=== PATIENT | female | born 1955 | race Caucasian/White ===

== ENCOUNTER 2016-03-17 10:34 | Emergency (ER) | payer OTHER ==
[2016-03-17 10:42] VITALS: RESP 18; TEMP 97.7
--- NOTE | 2016-03-17 11:18 | ED ---
Extremity Problem HPI - General Chief complaint: Extremity Problem,Nontraumatic Stated complaint: shoulder pain Time Seen by Provider: 03/17/16 11:04 Source: patient, RN notes reviewed Mode of arrival: ambulatory Limitations: no limitations - History of Present Illness Initial comments: This patient is a 60-year-old woman who presents to be evaluate for right shoulder and right elbow pains. The patient states that she started having these pains about 3 days ago and initially thought that they were related to change in some of her work duties which included some cleaning and other movements that were new for her. She states that about 3 days ago she began having some aching pains in the right shoulder and also the right elbow. The pains are constant, mild to moderate intensity, worse with palpation or certain movements. The patient states that over the past day or so she has been having some anxiety that this may be related to her heart. She is denying any anginal type associated symptoms, including no diaphoresis, dyspnea, nausea or vomiting , palpitations, lightheadedness or syncope. Patient states she has not previous stress test. She does not smoke. There is not much family history of heart disease, she is only aware of her mother and sister having had atrial fibrillation, no [place]. MD Complaint: extremity pain Onset/Timin -: days(s) Location: right, upper extremity History of Same: No Radiation: distal Quality: aching Consistency: constant Improves with: nothing Worsens with: palpation Associated Symptoms: denies other symptoms - Related Data Home Medications Medication Instructions Recorded Confirmed ALPRAZolam [Xanax] 0.5 mg PO DAILY PRN 03/17/16 03/17/16 Aspirin [Adult Low Dose Aspirin EC] 81 mg PO HS 03/17/16 03/17/16 Lisinopril-Hctz 10-12.5 mg 1 tab PO DAILY 03/17/16 03/17/16 [Zestoretic 10-12.5] Sertraline HCl [Zoloft] 100 mg PO DAILY 03/17/16 03/17/16 Simvastatin [Zocor] 40 mg PO HS 03/17/16 03/17/16 metFORMIN HCL [Glucophage] 500 mg PO BID 03/17/16 03/17/16 Previous Rx's Medication Instructions Recorded traMADol HCl [Ultram] 50 mg PO Q6H PRN #20 tab 03/17/16 Allergies Allergy/AdvReac Type Severity Reaction Status Date / Time Sulfa (Sulfonamide Allergy Rash/Hives Verified 03/17/16 12:52 Antibiotics) Review of Systems ROS Statement: Those systems with pertinent positive or pertinent negative responses have been documented in the HPI. ROS Other: All systems not noted in ROS Statement are negative. Constitutional: Denies: fever, chills, weakness Respiratory: Denies: cough, dyspnea Cardiovascular: Denies: chest pain, palpitations, edema, syncope Gastrointestinal: Denies: abdominal pain, nausea, vomiting Genitourinary: Denies: dysuria, hematuria Musculoskeletal: Reports: as per HPI, arthralgia. Denies: back pain Skin: Denies: rash Neurological: Denies: headache, weakness, numbness, paresthesias Past Medical History Past Medical History: Diabetes Mellitus, Hyperlipidemia, Hypertension Additional Past Medical History / Comment(s): anxiety History of Any Multi-Drug Resistant Organisms: None Reported Past Surgical History: No Surgical Hx Reported Past Psychological History: No Psychological Hx Reported Smoking Status: Never smoker Past Alcohol Use History: Occasional Past Drug Use History: None Reported General Exam Limitations: no limitations General appearance: alert, in no apparent distress Head exam: Present: atraumatic, normocephalic Eye exam: Present: normal appearance. Absent: scleral icterus, conjunctival injection ENT exam: Present: normal oropharynx Neck exam: Present: normal inspection Respiratory exam: Present: normal lung sounds bilaterally. Absent: respiratory distress, wheezes, rales, rhonchi, stridor Cardiovascular Exam: Present: regular rate, normal rhythm, normal heart sounds. Absent: systolic murmur, diastolic murmur, rubs, gallop GI/Abdominal exam: Present: soft. Absent: distended, tenderness, guarding, rebound, mass Extremities exam: Present: normal inspection, full ROM, tenderness, normal capillary refill. Absent: pedal edema, calf tenderness Back exam: Present: normal inspection. Absent: CVA tenderness (R), CVA tenderness (L) Neurological exam: Present: alert. Absent: motor sensory deficit Skin exam: Present: warm, dry, intact, normal color. Absent: rash Course Vital Signs 03/17/16 03/17/16 10:37 13:11 Temperature 97.7 F Pulse Rate 80 81 Respiratory 18 18 Rate Blood Pressure 152/91 128/55 O2 Sat by Pulse 99 98 Oximetry Medical Decision Making - Medical Decision Making Patient's a 60-year-old woman who presents with right shoulder and elbow pain that are reproducible. The patient did have an initial workup which was negative. Recommend that the patient have a stress test as an outpatient in the near future. Discussed symptoms requiring immediate return for reevaluation , as well as appropriate further care and follow-up. - Lab Data Result diagrams: 03/17/16 11:32 03/17/16 11:32 Lab Results 03/17/16 03/17/16 03/17/16 Range/Units 11:32 11:32 11:32 WBC 3.7 L (3.8-10.6) k/uL RBC 4.05 (3.80-5.40) m/uL Hgb 11.9 (11.4-16.0) gm/dL Hct 35.5 (34.0-46.0) % MCV 87.7 (80.0-100.0) fL MCH 29.3 (25.0-35.0) pg MCHC 33.5 (31.0-37.0) g/dL RDW 13.5 (11.5-15.5) % Plt Count 313 (150-450) k/uL Neutrophils % 62 % Lymphocytes % 28 % Monocytes % 8 % Eosinophils % 0 % Basophils % 1 % Neutrophils # 2.3 (1.3-7.7) k/uL Lymphocytes # 1.0 (1.0-4.8) k/uL Monocytes # 0.3 (0-1.0) k/uL Eosinophils # 0.0 (0-0.7) k/uL Basophils # 0.0 (0-0.2) k/uL PT 10.5 (9.0-12.0) sec INR 1.0 (<1.1) APTT 27.8 (22.0-30.0) sec Sodium 141 (137-145) mmol/L Potassium 4.4 (3.5-5.1) mmol/L Chloride 106 (98-107) mmol/L Carbon Dioxide 22 (22-30) mmol/L Anion Gap 13 mmol/L BUN 23 H (7-17) mg/dL Creatinine 1.10 H (0.52-1.04) mg/dL Est GFR (MDRD) Af Amer >60 (>60 ml/min/1.73 sqM) Est GFR (MDRD) Non-Af 51 (>60 ml/min/1.73 sqM) Glucose 139 H (74-99) mg/dL Calcium 9.4 (8.4-10.2) mg/dL Magnesium 1.9 (1.6-2.3) mg/dL Total Bilirubin 0.5 (0.2-1.3) mg/dL AST 23 (14-36) U/L ALT 32 (9-52) U/L Alkaline Phosphatase 72 (38-126) U/L Troponin I (0.000-0.034) ng/mL Total Protein 7.4 (6.3-8.2) g/dL Albumin 4.3 (3.5-5.0) g/dL 03/17/16 Range/Units 11:32 WBC (3.8-10.6) k/uL RBC (3.80-5.40) m/uL Hgb (11.4-16.0) gm/dL Hct (34.0-46.0) % MCV (80.0-100.0) fL MCH (25.0-35.0) pg MCHC (31.0-37.0) g/dL RDW (11.5-15.5) % Plt Count (150-450) k/uL Neutrophils % % Lymphocytes % % Monocytes % % Eosinophils % % Basophils % % Neutrophils # (1.3-7.7) k/uL Lymphocytes # (1.0-4.8) k/uL Monocytes # (0-1.0) k/uL Eosinophils # (0-0.7) k/uL Basophils # (0-0.2) k/uL PT (9.0-12.0) sec INR (<1.1) APTT (22.0-30.0) sec Sodium (137-145) mmol/L Potassium (3.5-5.1) mmol/L Chloride (98-107) mmol/L Carbon Dioxide (22-30) mmol/L Anion Gap mmol/L BUN (7-17) mg/dL Creatinine (0.52-1.04) mg/dL Est GFR (MDRD) Af Amer (>60 ml/min/1.73 sqM) Est GFR (MDRD) Non-Af (>60 ml/min/1.73 sqM) Glucose (74-99) mg/dL Calcium (8.4-10.2) mg/dL Magnesium (1.6-2.3) mg/dL Total Bilirubin (0.2-1.3) mg/dL AST (14-36) U/L ALT (9-52) U/L Alkaline Phosphatase (38-126) U/L Troponin I <0.012 (0.000-0.034) ng/mL Total Protein (6.3-8.2) g/dL Albumin (3.5-5.0) g/dL - EKG Data -: EKG Interpreted by [facility] EKG shows normal: sinus rhythm, axis (Normal), intervals (Normal), QRS complexes (Low voltage QRS) Rate: normal (Rate 79 bpm) Disposition Clinical Impression: Right arm pain Disposition: HOME SELF-CARE Condition: Good Instructions: Arm Pain (ED) Prescriptions: traMADol HCl [Ultram] 50 mg PO Q6H PRN #20 tab PRN Reason: Pain Referrals: Renny Degroot MD [Primary Care Provider] - 1-2 days
[2016-03-17 11:47] LABS: Basophils % (A) 1 %; CH 30.6; CHCM 35.1; Eosinophils % (A) 0 %; HCT 35.5 % (34.0-46.0); HDW 2.99; HGB 11.9 gm/dL (11.4-16.0); Luc # (Auto) 0.06; Luc % (Auto) 2; Lymphocytes % (A) 28 %; MCH 29.3 pg (25.0-35.0); MCHC 33.5 g/dL (31.0-37.0); MCV 87.7 fL (80.0-100.0); Mean Platelet Volume 7.4; Monocytes # (A) 0.3 k/uL (0-1.0); Monocytes % (A) 8 %; Neutrophils # (A) 2.3 k/uL (1.3-7.7); Neutrophils % (A) 62 %; RBC 4.05 m/uL (3.80-5.40); RDW 13.5 % (11.5-15.5); WBC 3.7 k/uL (3.8-10.6); WBC (Perox) 3.92
[2016-03-17 11:56] LABS: Partial Thromboplastin Time 27.8 sec (22.0-30.0); Prothrombin Time 10.5 sec (9.0-12.0)
[2016-03-17 11:58] LABS: ALT 32 U/L (9-52); AST 23 U/L (14-36); Alkaline Phosphatase 72 U/L (38-126); Anion Gap 13 mmol/L; Blood Urea Nitrogen 23 mg/dL (7-17); Calcium 9.4 mg/dL (8.4-10.2); Carbon Dioxide 22 mmol/L (22-30); Chloride 106 mmol/L (98-107); Glucose 139 mg/dL (74-99); Magnesium 1.9 mg/dL (1.6-2.3); Non-African American GFR(MDRD) 51 (>60 ml/min/1.73 sqM); Potassium 4.4 mmol/L (3.5-5.1); Sodium 141 mmol/L (137-145); Total Bilirubin 0.5 mg/dL (0.2-1.3); Total Protein 7.4 g/dL (6.3-8.2)
--- NOTE | 2016-03-17 12:08 | XR ---
EXAMINATION TYPE: XR chest 1V portable DATE OF EXAM: 03/17/2016 12:03 PM COMPARISON: NONE HISTORY: Chest pain TECHNIQUE: Single frontal view of the chest is obtained. FINDINGS: There is no focal air space opacity, pleural effusion, or pneumothorax seen. Cardiomegaly. The osseous structures are intact. IMPRESSION: 1. Mild cardiomegaly
[2016-03-17 13:13] VITALS: BP 128/55; PULSE 81
== END 2016-03-17 13:13 | disposition home or self-care (01) ==
LOC: EC 10:34
DX: M25.511 Pain in right shoulder (principal); M25.521 Pain in right elbow; I51.7 Cardiomegaly; E11.9 Type 2 diabetes mellitus without complications; E78.5 Hyperlipidemia, unspecified; I10 Essential (primary) hypertension; Z88.2 Allergy status to sulfonamides; Z79.82 Long term (current) use of aspirin; Z79.899 Other long term (current) drug therapy; Z79.84 Long term (current) use of oral hypoglycemic drugs
CPT/HCPCS: 36415; 71010; 80053; 83735; 84484; 85025; 85610; 85730; 93005; 99284

== ENCOUNTER 2020-07-17 18:13 | Emergency (ER) | payer BC, OTHER ==
[2020-07-17] MEDS ORDERED: LIDOCAINE 1% INJ 10MG/ML (20 ML MDV) SQ STA (18:49)
[2020-07-17] MEDS ORDERED: DIPH,PERTUS(ACELL)TETVAC-LF 0.5 ML VIAL IM ONE (18:49)
[2020-07-17] MEDS ORDERED: KETOROLAC 15 MG/ML 1 ML VIAL IVP STA (18:55)
[2020-07-17] MEDS ORDERED: SODIUM CHLORIDE 0.9% 1,000 ML IV STA (18:55)
--- NOTE | 2020-07-17 18:59 | ED ---
General Adult HPI - General Chief complaint: Abdominal Pain Stated complaint: Abd pain Time Seen by Provider: 07/17/20 18:21 Source: patient, RN notes reviewed Mode of arrival: ambulatory Limitations: no limitations - History of Present Illness Initial comments: 65-year-old female with a past medical history of diabetes mellitus, hyperlipidemia, hypertension, anxiety presents to the emergency room for left flank pain. Patient reports that this started earlier today. States it wraps around to his the left mid abdomen. Patient unsure of any alleviating or aggravating factors. She admits to slight nausea but denies vomiting. Patient states this started when she was shopping with her daughter and felt she needed to have a bowel movement. However when having the bowel movement did not help and the pain worsened. Patient was recently treated for a urinary tract infection on Keflex for 7 days which she discontinued one week ago. Patient den ies fevers or chills. Denies dysuria.Patient has no other complaints at this time including shortness of breath, chest pain, nausea or vomiting, headache, or visual changes. - Related Data Home Medications Medication Instructions Recorded Confirmed ALPRAZolam [Xanax] 0.5 mg PO DAILY PRN 03/17/16 03/17/16 Aspirin [Adult Low Dose Aspirin EC] 81 mg PO HS 03/17/16 03/17/16 Lisinopril-Hctz 10-12.5 mg 1 tab PO DAILY 03/17/16 03/17/16 [Zestoretic 10-12.5] Sertraline HCl [Zoloft] 100 mg PO DAILY 03/17/16 03/17/16 Simvastatin [Zocor] 40 mg PO HS 03/17/16 03/17/16 metFORMIN HCL [Glucophage] 500 mg PO BID 03/17/16 03/17/16 Previous Rx's Medication Instructions Recorded traMADol HCl [Ultram] 50 mg PO Q6H PRN #20 tab 03/17/16 HYDROcodone/APAP 5-325MG [[place] 1 tab PO Q6HR PRN #10 tab 07/17/20 5-325] Ondansetron [Zofran ODT] 4 mg PO Q8HR PRN #15 tab 07/17/20 Tamsulosin [Flomax] 0.4 mg PO DAILY #14 cap 07/17/20 Allergies Allergy/AdvReac Type Severity Reaction Status Date / Time Sulfa (Sulfonamide Allergy Rash/Hives Verified 07/17/20 18:20 Antibiotics) Review of Systems ROS Statement: Those systems with pertinent positive or pertinent negative responses have been documented in the HPI. ROS Other: All systems not noted in ROS Statement are negative. Past Medical History Past Medical History: Diabetes Mellitus, Hyperlipidemia, Hypertension Additional Past Medical History / Comment(s): anxiety History of Any Multi-Drug Resistant Organisms: None Reported Past Surgical History: No Surgical Hx Reported Past Psychological History: No Psychological Hx Reported Smoking Status: Never smoker Past Alcohol Use History: Occasional Past Drug Use History: None Reported General Exam Limitations: no limitations General appearance: alert, in no apparent distress Head exam: Present: atraumatic, normocephalic, normal inspection Eye exam: Present: normal appearance, PERRL, EOMI. Absent: scleral icterus, conjunctival injection, periorbital swelling ENT exam: Present: normal exam, mucous membranes moist Neck exam: Present: normal inspection, full ROM. Absent: tenderness, meningismus, lymphadenopathy Respiratory exam: Present: normal lung sounds bilaterally. Absent: respiratory distress, wheezes, rales, rhonchi, stridor Cardiovascular Exam: Present: regular rate, normal rhythm, normal heart sounds. Absent: systolic murmur, diastolic murmur, rubs, gallop, clicks GI/Abdominal exam: Present: soft, normal bowel sounds. Absent: distended, tenderness, guarding, rebound, rigid Back exam: Absent: CVA tenderness (R), CVA tenderness (L) Neurological exam: Present: alert Course Vital Signs 07/17/20 07/17/20 18:16 20:30 Temperature 98.3 F 98 F Pulse Rate 103 H 95 Respiratory 18 20 Rate Blood Pressure 137/67 152/86 O2 Sat by Pulse 99 100 Oximetry Medical Decision Making - Medical Decision Making Vitals are stable. Patient presents for left flank pain. He does appear in mild distress secondary to the pain. Laboratory evaluation was initiated. CBC unremarkable. Hemoglobin stable. CMP does show evidence of creatinine of 1.4, patient reports that this is relatively normal for her as she has a history of kidney disease. Glucose of 271 which patient also has a history of. Urinalysis does not show any evidence of infection although there is blood which is likely secondary to kidney stone. CT abdomen and pelvis without contrast shows an obstructing calculus proximal left ureter with left-sided hydronephrosis and proximal hydroureter. Bilateral renal calculi noted. Sigmoid diverticulosis without diverticulitis as well. kidney stone is consistent with patient's symptoms. Patient is given pain medication and did have significant improvement. Patient can be discharged home to follow up with primary care. She will return here for any worsening symptoms. - Lab Data Result diagrams: 07/17/20 19:17 07/17/20 19:17 Lab Results 07/17/20 07/17/20 07/17/20 Range/Units 19:17 19:17 19:17 WBC 5.5 (3.8-10.6) k/uL RBC 3.51 L (3.80-5.40) m/uL Hgb 10.8 L (11.4-16.0) gm/dL Hct 30.9 L (34.0-46.0) % MCV 88.0 (80.0-100.0) fL MCH 30.9 (25.0-35.0) pg MCHC 35.1 (31.0-37.0) g/dL RDW 13.4 (11.5-15.5) % Plt Count 322 (150-450) k/uL MPV 7.1 Neutrophils % 74 % Lymphocytes % 19 % Monocytes % 5 % Eosinophils % 0 % Basophils % 1 % Neutrophils # 4.1 (1.3-7.7) k/uL Lymphocytes # 1.1 (1.0-4.8) k/uL Monocytes # 0.3 (0-1.0) k/uL Eosinophils # 0.0 (0-0.7) k/uL Basophils # 0.0 (0-0.2) k/uL Sodium 135 L (137-145) mmol/L Potassium 4.7 (3.5-5.1) mmol/L Chloride 106 (98-107) mmol/L Carbon Dioxide 18 L (22-30) mmol/L Anion Gap 11 mmol/L BUN 27 H (7-17) mg/dL Creatinine 1.40 H (0.52-1.04) mg/dL Est GFR (CKD-EPI)AfAm 46 (>60 ml/min/1.73 sqM) Est GFR (CKD-EPI)NonAf 40 (>60 ml/min/1.73 sqM) Glucose 271 H (74-99) mg/dL Calcium 9.5 (8.4-10.2) mg/dL Total Bilirubin 0.2 (0.2-1.3) mg/dL AST 31 (14-36) U/L ALT 20 (4-34) U/L Alkaline Phosphatase 74 (38-126) U/L Total Protein 7.0 (6.3-8.2) g/dL Albumin 4.3 (3.5-5.0) g/dL Amylase 77 (30-110) U/L Lipase 391 H (23-300) U/L Urine Color Yellow Urine Appearance Cloudy H (Clear) Urine pH 5.5 (5.0-8.0) Ur Specific [place] 1.022 (1.001-1.035) Urine Protein 1+ H (Negative) Urine Glucose (UA) 3+ H (Negative) Urine Ketones Negative (Negative) Urine Blood Large H (Negative) Urine Nitrite Negative (Negative) Urine Bilirubin Negative (Negative) Urine Urobilinogen <2.0 (<2.0) mg/dL Ur Leukocyte Esterase Large H (Negative) Urine RBC 73 H (0-5) /hpf Urine WBC 8 H (0-5) /hpf Ur Squamous Epith Cells 20 H (0-4) /hpf Urine Bacteria Rare H (None) /hpf Urine Mucus Rare H (None) /hpf Disposition Clinical Impression: Ureterolithiasis Disposition: HOME SELF-CARE Condition: Good Instructions (If sedation given, give patient instructions): Kidney Stones (ED) Additional Instructions: Please take medication as directed. Take [place] for pain. Take Zofran for nausea. Take Flomax as directed. Follow up with urology. Return to the emergency room for any worsening symptoms. Prescriptions: Tamsulosin [Flomax] 0.4 mg PO DAILY #14 cap HYDROcodone/APAP 5-325MG [[place] 5-325] 1 tab PO Q6HR PRN #10 tab PRN Reason: Pain Ondansetron [Zofran ODT] 4 mg PO Q8HR PRN #15 tab PRN Reason: Nausea Is patient prescribed a controlled substance at d/c from ED?: Yes When asked, does pt state using other controlled substances?: No If prescribed controlled substance>3 days was MAPS reviewed?: Prescribed <3 Days If opioid is for acute pain is fill amount 7 days or less?: Yes If Rx opioid, was Start Talking consent form obtained?: Yes Referrals: Derrek Ashford MD [Primary Care Provider] - 1-2 days Manan Howard MD [STAFF PHYSICIAN] - 1-2 days Time of Disposition: 21:02
[2020-07-17 19:31] LABS: Basophils % (A) 1 %; Eosinophils % (A) 0 %; HCT 30.9 % (34.0-46.0); HGB 10.8 gm/dL (11.4-16.0); Lymphocytes # (A) 1.1 k/uL (1.0-4.8); Lymphocytes % (A) 19 %; MCH 30.9 pg (25.0-35.0); MCHC 35.1 g/dL (31.0-37.0); Mean Platelet Volume 7.1; Monocytes # (A) 0.3 k/uL (0-1.0); Monocytes % (A) 5 %; Neutrophils # (A) 4.1 k/uL (1.3-7.7); Neutrophils % (A) 74 %; Platelet Count 322 k/uL (150-450); RBC 3.51 m/uL (3.80-5.40); RDW 13.4 % (11.5-15.5); WBC 5.5 k/uL (3.8-10.6)
[2020-07-17 19:49] LABS: Appearance,Urine Cloudy (Clear); Bacteria,Urine Rare /hpf; Bilirubin,Urine Negative (Negative); Blood,Urine Large (Negative); Color,Urine Yellow; Glucose,Urine (UA) 3+ (Negative); Ketones,Urine Negative (Negative); Leukocyte Esterase,Urine Large (Negative); Mucus,Urine Rare /hpf; Nitrite,Urine Negative (Negative); PH, Urine 5.5 (5.0-8.0); Protein,Urine 1+ (Negative); RBC,Urine 73 /hpf (0-5); Specific Gravity,Urine 1.022 (1.001-1.035); Squamous Epithelial Cell,Urine 20 /hpf (0-4); Urobilinogen,Urine <2.0 mg/dL (<2.0); WBC,Urine 8 /hpf (0-5)
[2020-07-17 20:02] LABS: Albumin 4.3 g/dL (3.5-5.0); Calcium 9.5 mg/dL (8.4-10.2); Potassium 4.7 mmol/L (3.5-5.1); Total Bilirubin 0.2 mg/dL (0.2-1.3)
[2020-07-17] MEDS ORDERED: HYDROmorphone 1 MG/ML 1 ML SYRINGE IVP STA (20:06)
[2020-07-17 20:32] VITALS: BP 152/86; PULSE 95; RESP 20
--- NOTE | 2020-07-17 20:32 | CT ---
EXAMINATION TYPE: CT abdomen pelvis wo con DATE OF EXAM: 07/17/2020 COMPARISON: None HISTORY: Left flank pain. Recently treated for UTI. CT DLP: 869.2 mGycm Automated exposure control for dose reduction was used. Images obtained from the diaphragm to the floor the pelvis with no contrast. Lung bases are clear of consolidation. There is no pleural effusion. Heart appears normal. There is 2 cm hypodensity in the posterior right lobe of the liver that is probably a cyst. There is 1 cm calcified gallstone. The bile ducts are not dilated. Spleen is intact. The stomach is intact. Th ere is no evidence of pancreatic mass. There is no adrenal mass. There is left-sided hydronephrosis and hydroureter. There is 4 mm calculus in the proximal left ureter. Distal left ureter not dilated. There is 5 mm calculus lower pole left k idney. There is 2 mm calculus anterior lower pole right kidney. There is no retroperitoneal adenopathy. Bladder distends smoothly. There is no inguinal hernia. There is no free fluid in the pelvis. There are multiple sigmoid diverticula. There is no diverticulitis. Appendix is posterior and appears normal. Lumbar vertebra have normal alignment. There is degenerativ e disc space narrowing from L3 to S1. IMPRESSION: Obstructing calculus proximal left ureter with left-sided hydronephrosis and proximal hydroureter. Bi lateral renal calculi. Sigmoid diverticulosis without diverticulitis.
[2020-07-17 20:34] VITALS: TEMP 98
[2020-07-17] MEDS ORDERED: ACET/COD 300 MG/30 MG STARTER PACK 6 TAB BTL PO STA (21:10)
== END 2020-07-17 21:29 | disposition home or self-care (01) ==
LOC: EC 18:13
DX: N13.2 Hydronephrosis with renal and ureteral calculous obstruction (principal); E11.9 Type 2 diabetes mellitus without complications; I10 Essential (primary) hypertension; E78.5 Hyperlipidemia, unspecified; F41.9 Anxiety disorder, unspecified; Z87.440 Personal history of urinary (tract) infections; Z79.899 Other long term (current) drug therapy; Z79.84 Long term (current) use of oral hypoglycemic drugs; Z79.82 Long term (current) use of aspirin
CPT/HCPCS: 36415; 80053; 82150; 83690; 85025; 81001; 74176; 99284; 96374; 96375; 96361; J1170; J1885

== ENCOUNTER → 2024-09-08 | Outpatient (CLI) | payer MEDICARE, OTHER ==
--- NOTE | 2024-09-08 13:42 | US ---
EXAMINATION TYPE: US kidneys/renal and bladder DATE OF EXAM: 09/08/2024 COMPARISON: CLINICAL INDICATION: Female, 69 years old with history of N18.31 CKD STG 3A; Abn labs. No pain. TECHNIQUE: Grayscale imaging of the bilateral kidneys and urinary bladder: FINDINGS: EXAM MEASUREMENTS: Right Kidney: 9.0 x 4.2 x 4.1 cm Left Kidney: 9.1 x 3.9 x 5.1 cm Right Kidney: Superior lateral anechoic lesion = 0.8 x 0.7 x 0.8 cm compatible with small simple mitch earing cyst Left Kidney: No hydronephrosis or masses seen Bladder: mildly distended, anechoic Bilateral Jets not seen There is no evidence for hydronephrosis at this point in time. No nephrolithiasis is seen. No brad s are identified. The urinary bladder is anechoic. IMPRESSION: 1. Small right superior pole simple renal cyst. [facility], Workstation: [facility] [place] [facility], 09/08/2024 1:40 PM
== END | disposition home or self-care (01) ==
LOC: RADUSWWP 12:51
PROVIDERS: ATTEND Internal Medicine
DX: N18.31 Chronic kidney disease, stage 3a (principal); N28.1 Cyst of kidney, acquired
CPT/HCPCS: 76770

== ENCOUNTER → 2024-09-14 | Outpatient (CLI) | payer MEDICARE, OTHER ==
--- NOTE | 2024-09-14 18:13 | MM ---
Reason for Exam: Screening (asymptomatic). Last mammogram was performed 1 year(s) and 2 month(s) ago. Patient History: Menarche at age 11. First Full-Term at age 32. Late child-bearing (after 32). Postmenopausal. Maternal cousin (alvin) had breast cancer at or over age 50. Mother had breast cancer, age 84. Risk Values: Anitha 5 year model risk: 3.7%. NCI Lifetime model risk: 12.4%. Prior Study Comparison: 06/08/2020 Bilateral MG 3D screening mammo w/cad, [facility], [place]. 07/04/2020 Left MG 3D diag mammo w/cad LT, [facility], [place]. 07/11/2022 Bilateral MG 3D screening mammo w/cad, [facility], [place]. 07/12/2023 Bilateral MG 3D screening mammo w/cad, [facility], [place]. Tissue Density: There are scattered areas of fibroglandular density. Findings: Analyzed By CAD. Chronic nodularity on the right. There is no suspicious group of microcalcifications or new suspicious mass in either breast. Overall Assessment: Benign, BI-RAD 2 Management: Screening Mammogram of both breasts in 1 year. Patient should continue monthly self-breast exams. A clinical breast exam by your physician is recommended on an annual basis. This exam should not preclude additional follow-up of suspicious palpable abnormalities. Note on Anitha scores and lifetime risk: 1. A Anitha score greater than 3% is considered moderate risk. If this is the case, consider specialist referral to assess eligibility for a risk reducing agent. 2. If overall lifetime risk for the development of breast cancer is 20% or higher, the patient may qualify for future screening with alternating mammogram and breast MRI. [facility], , 09/14/2024 6:10 PM. Electronically signed and approved by: Too Mcmahon M.D. Radiologist
== END | disposition home or self-care (01) ==
LOC: RADMAMWWP 14:42
PROVIDERS: ATTEND Internal Medicine
DX: Z12.31 Encounter for screening mammogram for malignant neoplasm of breast (principal); R92.323 Mammographic fibroglandular density, bilateral breasts; Z78.0 Asymptomatic menopausal state; Z80.3 Family history of malignant neoplasm of breast
CPT/HCPCS: 77063; 77067